=== PATIENT | male | born 1975 | race Caucasian/White ===

== ENCOUNTER 2024-04-05 09:24 | Emergency (ER) | payer MEDICAID ==
[~2024-04-05] VITALS: Ht 188 cm; Wt 96.0 kg
[2024-04-05 09:24] VITALS: BP 159/77; TEMP 96.1; O2SAT 98
[2024-04-05] MEDS ORDERED: VALB40CA PO (10:43)
[2024-04-05] MEDS ORDERED: AMLO1TAB25 PO ×2 (10:43→11:18)
[2024-04-05] MEDS ORDERED: HYDR1CAP25 PO (10:43)
[2024-04-05] MEDS ORDERED: ZIPR60CA11 PO ×2 (10:43→11:18)
[2024-04-05] MEDS ORDERED: VALB60CA PO (11:18)
[2024-04-05] MEDS ORDERED: HYDR-3363 PO (11:18)
[2024-04-05 11:41] LABS: BASO % 0.6 % (0.0-1.0); EOS # 0.1 10^3/uL (0.0-0.5); EOS % 0.9 % (0.0-3.0); HEMATOCRIT 50.2 % (42.0-52.0); HEMOGLOBIN 17.6 g/dl (13.5-17.5); LYMPH # 1.1 10^3/uL (1.5-5.0); LYMPH % 16.7 % (24.0-44.0); MEAN CORPUSCULAR HEMOGLOBIN 28.9 pg (27.0-33.0); MEAN CORPUSCULAR HGB CONC 35.1 g/dl (32.0-36.5); MEAN CORPUSCULAR VOLUME 82.6 fl (80.0-96.0); MONO # 0.6 10^3/uL (0.0-0.8); MONO % 8.5 % (2.0-8.0); NEUTROPHILS # 4.7 10^3/uL (1.5-8.5); NEUTROPHILS % 73.1 % (36.0-66.0); PLATELET COUNT, AUTOMATED 211 10^3/uL (150-450); RED BLOOD COUNT 6.08 10^6/uL (4.30-6.10); WHITE BLOOD COUNT 6.5 10^3/uL (4.0-10.0)
[2024-04-05 12:01] VITALS: BP 159/77
[2024-04-05] MEDS: ZIPRASIDONE 20MG CAPSULE (GEODON) PO ONE (12:01)
[2024-04-05 12:10] LABS: ALBUMIN 4.3 G/DL (3.2-5.2); ALKALINE PHOSPHATASE 74 U/L (46-116); ALT/SGPT 47 U/L (7.0-40); AST/SGOT 54 U/L (<34); BILIRUBIN,TOTAL 0.5 MG/DL (0.3-1.2); BLOOD UREA NITROGEN 9 MG/DL (9-23); CALCIUM LEVEL 9.6 MG/DL (8.5-10.1); CARBON DIOXIDE LEVEL 26 MMOL/L (20-31); CHLORIDE LEVEL 104 MMOL/L (98-107); CREATININE FOR GFR 0.72 MG/DL (0.70-1.30); GLOMERULAR FILTRATION RATE > 60.0 (>56); GLUCOSE, FASTING 105 MG/DL (60-100); POTASSIUM SERUM 4.2 MMOL/L (3.5-5.1); SODIUM LEVEL 135 MMOL/L (136-145); TOTAL PROTEIN 7.4 G/DL (5.7-8.2)
== END 2024-04-05 13:13 | disposition home or self-care (01) ==
LOC: M ED 09:24
DX: F31.9 Bipolar disorder, unspecified (principal); F41.9 Anxiety disorder, unspecified; G24.01 Drug induced subacute dyskinesia; Z76.0 Encounter for issue of repeat prescription; F17.200 Nicotine dependence, unspecified, uncomplicated; F10.10 Alcohol abuse, uncomplicated; F12.10 Cannabis abuse, uncomplicated; Z79.899 Other long term (current) drug therapy

== ENCOUNTER → 2024-04-18 | Outpatient (REF) | payer MEDICAID, OTHER ==
[~2024-04-18] MED LIST: AMLO1TAB25 PO; HYDR-3363 PO; HYDR1CAP25 PO; VALB40CA PO; VALB60CA PO; ZIPR60CA11 PO
[2024-04-18 12:17] LABS: THYROID STIMULATING HORMONE 0.782 uIU/ML (0.55-4.78); TOTAL 25(OH) VITAMIN D 24.3 NG/ML (20.0-100.0)
[2024-04-18 12:20] LABS: CHOLESTEROL RISK RATIO 2.44 (<5); HDL CHOLESTEROL 96.9 MG/DL (>40); LDL CHOLESTEROL 125.7 MG/DL (<100); NON-HDL-C 140.1 MG/DL
[2024-04-18 12:21] LABS: FOLATE 11.3 NG/ML (>5.4)
[2024-04-18 12:51] LABS: CREATININE, URINE 26.5 MG/DL
[2024-04-18 12:52] LABS: MAU/CREAT RATIO 60.3 MCG/MG (0.0-30.0)
[2024-04-18 13:22] LABS: HEMOGLOBIN A1c 4.9 % (4.0-6.0)
== END ==
LOC: M LAB REF 11:26
PROVIDERS: ATTEND Physician Assistant
DX: I10 Essential (primary) hypertension (principal)

== ENCOUNTER → 2025-06-18 | Outpatient (REF) | payer OTHER ==
[~2025-06-18] MED LIST changes: -ZIPR60CA11 PO; +ZIPR60CA21 PO
[2025-06-18 14:30] LABS: ESTIMATED AVERAGE GLUCOSE 100.0 MG/DL (60-110)
[2025-06-18 14:57] LABS: ALT/SGPT 22 U/L (7.0-40); AST/SGOT 30 U/L (<34); CALCIUM LEVEL 9.8 MG/DL (8.5-10.1); CARBON DIOXIDE LEVEL 28 MMOL/L (20-31); CHLORIDE LEVEL 106 MMOL/L (98-107); CHOLESTEROL LEVEL 161 MG/DL (<200); CHOLESTEROL RISK RATIO 2.49 (<5); CREATININE FOR GFR 0.78 MG/DL (0.70-1.30); GLOMERULAR FILTRATION RATE > 90.0 (>56); LDL CHOLESTEROL 76.7 MG/DL (<100); NON-HDL-C 96.5 MG/DL; POTASSIUM SERUM 4.7 MMOL/L (3.5-5.1); SODIUM LEVEL 140 MMOL/L (136-145); TRIGLYCERIDES LEVEL 99 MG/DL (<150)
[2025-06-18 14:58] LABS: TOTAL 25(OH) VITAMIN D 10.5 NG/ML (20.0-100.0)
[2025-06-18 14:59] LABS: VITAMIN B12 LEVEL 409 PG/ML (211-911)
[2025-06-20 13:07] LABS: PSA % FREE 25.0 % (calc) (>25); PSA FREE 0.1 ng/mL; PSA TOTAL 0.4 ng/mL (< OR = 4.0)
== END ==
LOC: M LAB REF 13:55
PROVIDERS: ATTEND Physician Assistant
DX: I10 Essential (primary) hypertension (principal); F10.90 Alcohol use, unspecified, uncomplicated; Z12.5 Encounter for screening for malignant neoplasm of prostate; E55.9 Vitamin D deficiency, unspecified; E78.5 Hyperlipidemia, unspecified